=== PATIENT | male | born 1970 | race Caucasian/White ===

== ENCOUNTER 2017-02-17 11:38 | Emergency (ER) | payer MEDICARE ==
[2017-02-17 11:44] VITALS: BP 115/75
--- NOTE | 2017-02-17 12:27 | ER Document Report ---
ED General - General Chief Complaint: Back Pain Stated Complaint: BACK, LEG AND SHOULDER PAIN Time Seen by Provider: 02/17/17 12:21 Mode of Arrival: Ambulatory Information source: Patient Notes: Patient presents stating that he just moved here and he is out of his pain medication and sleep medication. He states he is try to see several doctors but has been unable to get his medications. He states he has chronic MS. He states he is having both leg and head pain. They are constant and moderate to severe. Nothing makes it better or worse. He states it makes it hard for him to sleep. Patient is asking for referral to primary care physician. The pain does radiate up both legs and down the back of her neck. - Related Data Allergies/Adverse Reactions: diphenhydramine [From Benadryl] Allergy (Verified 02/17/17 11:43) escitalopram [From Lexapro] Allergy (Verified 02/17/17 11:43) Sulfa (Sulfonamide Antibiotics) Allergy (Verified 02/17/17 11:43) Home Medications: Current Home Medications Finasteride [Proscar 5 mg Tablet] 5 mg PO DAILY 02/17/17 [History] Nabilone [Cesamet] 1 mg PO BID 02/17/17 [History] Omeprazole Magnesium [Prilosec Otc] 20 mg PO DAILY 02/17/17 [History] Ondansetron HCl [Zofran 4 mg Tablet] 2 tab PO TID 02/17/17 [History] Oxycodone HCl 20 mg PO QID 02/17/17 [History] Pregabalin [Lyrica 100 Mg Capsule] 100 mg PO TID 02/17/17 [History] Quetiapine Fumarate [Seroquel] 100 mg PO QHS 02/17/17 [History] Ranitidine HCl [Zantac 150 mg Tablet] 150 mg PO BID 02/17/17 [History] Tamsulosin HCl [Flomax] 0.4 mg PO DAILY 02/17/17 [History] Past Medical History - Social History Smoking Status: Never Smoker Chew tobacco use (# tins/day): No Frequency of alcohol use: None Drug Abuse: None Family History: Reviewed & Not Pertinent Renal/ Medical History: Denies: Hx Peritoneal Dialysis GI Medical History: Reports: Hx Gastroesophageal Reflux Disease Past Surgical History: Reports: Hx Abdominal Surgery - lap demetria 2004, bilat hernia repair 2009, Hx Orthopedic Surgery - R shoulder Review of Systems - Review of Systems Constitutional: Malaise, Weakness. denies: Chills, Fever Cardiovascular: denies: Chest pain, Palpitations Respiratory: denies: Cough, Short of breath Physical Exam - Vital signs Vitals: Temp Pulse Resp BP Pulse Ox 97.9 F 94 16 115/75 99 02/17/17 11:41 02/17/17 11:41 02/17/17 11:41 02/17/17 11:41 02/17/17 11:41 Interpretation: Normal - General General appearance: Appears well, Alert - HEENT Head: Normocephalic, Atraumatic Eyes: Normal Pupils: PERRL - Respiratory Respiratory status: No respiratory distress Chest status: Nontender Breath sounds: Normal Chest palpation: Normal - Cardiovascular Rhythm: Regular Heart sounds: Normal auscultation Murmur: No - Abdominal Inspection: Normal Distension: No distension Bowel sounds: Normal Tenderness: Nontender Organomegaly: No organomegaly - Back Back: Normal, Nontender - Extremities General upper extremity: Normal inspection, Nontender, Normal color, Normal ROM , Normal temperature General lower extremity: Normal inspection, Nontender, Normal color, Normal ROM , Normal temperature, Normal weight bearing. No: Delmi's sign - Neurological Neuro grossly intact: Yes Cognition: Normal Orientation: AAOx4 [place] Coma Scale Eye Opening: Spontaneous [place] Coma Scale Verbal: Oriented [place] Coma Scale Motor: Obeys Commands Bassam Coma Scale Total: 15 Speech: Normal Sensory: Normal - Psychological Associated symptoms: Normal affect, Normal mood - Skin Skin Temperature: Warm Skin Moisture: Dry Skin Color: Normal Course - Vital Signs Vital signs: Temp Pulse Resp BP Pulse Ox 97.9 F 94 16 115/75 99 02/17/17 11:41 02/17/17 11:41 02/17/17 11:41 02/17/17 11:41 02/17/17 11:41 Discharge - Discharge Clinical Impression: Multiple sclerosis exacerbation Condition: Stable Disposition: HOME, SELF-CARE Additional Instructions: Please follow-up with a walk-in appointment at Dr. Gaspar's office as soon as possible. Prescriptions: Quetiapine Fumarate [Seroquel] 100 mg PO QHS #12 tablet Oxycodone HCl/Acetaminophen [Percocet 5-325 mg Tablet] 1 - 2 tab PO Q6 #15 tablet Referrals: KEVIN GASPAR MD [COMMUNITY BASED STAFF] - Follow up as needed
== END 2017-02-17 12:28 | disposition home or self-care (01) ==
LOC: ER 11:38
DX: G35 Multiple sclerosis (principal); M54.9 Dorsalgia, unspecified; M79.606 Pain in leg, unspecified; M25.519 Pain in unspecified shoulder; Z79.899 Other long term (current) drug therapy
CPT/HCPCS: 99283

== ENCOUNTER 2017-03-26 16:35 | Emergency (ER) | payer MEDICARE, MEDICAID ==
--- NOTE | 2017-03-26 18:56 | ER Document Report ---
HPI - HPI Patient complains to provider of: Right knee, right leg pain Onset: Other - 2 days ago Onset/Duration: Persistent Quality of pain: Achy, Burning Pain Level: 4 Context: Patient states that he was squatting down 2 days ago and as he stood up he felt a sudden sharp pain in his right knee. Patient states that since then he has had anterior right lower leg pain and burning with pins and needles sensation to the plantar surface of his right foot. Patient states that yesterday his leg was swollen although the swelling resolved today. Patient does have a history of MS and is not currently followed by a neurologist as he just recently relocated to this area. Patient denies any recent travel, bedrest remobilization. No history of PE or DVT in the past. Associated Symptoms: Other - Right knee, right lower leg pain Exacerbated by: Movement Relieved by: Denies Similar symptoms previously: No Recently seen / treated by doctor: No - ROS ROS below otherwise negative: Yes Systems Reviewed and Negative: Yes All other systems reviewed and negative - CONSTITUTIONAL Constitutional: DENIES: Fever, Chills - CARDIOVASCULAR Cardiovascular: DENIES: Chest pain - RESPIRATORY Respiratory: DENIES: Trouble Breathing, Coughing - MUSCULOSKELETAL Musculoskeletal: REPORTS: Extremity pain, Swelling - Yesterday, now resolved - DERM Skin Color: Normal Skin Problems: None Past Medical History - General Information source: Patient - Social History Smoking Status: Current Every Day Smoker Chew tobacco use (# tins/day): No Frequency of alcohol use: None Drug Abuse: None Occupation: Construction Lives with: Family Family History: Reviewed & Not Pertinent Patient has suicidal ideation: No Patient has homicidal ideation: No - Medical History Medical History: Other - MS Renal/ Medical History: Denies: Hx Peritoneal Dialysis GI Medical History: Reports: Hx Gastroesophageal Reflux Disease Musculoskeltal Medical History: Reports Hx Arthritis Past Surgical History: Reports: Hx Abdominal Surgery - lap demetria 2004, bilat hernia repair 2008, Hx Orthopedic Surgery - R shoulder Vertical Provider Document - CONSTITUTIONAL Agree With Documented VS: Yes Exam Limitations: No Limitations General Appearance: WD/WN, No Apparent Distress - INFECTION CONTROL TRAVEL OUTSIDE OF THE [place] IN LAST 30 DAYS: No - HEENT HEENT: Atraumatic, Normocephalic - NECK Neck: Normal Inspection, Supple - RESPIRATORY Respiratory: Breath Sounds Normal, No Respiratory Distress O2 Sat by Pulse Oximetry: 99 - CARDIOVASCULAR Cardiovascular: Regular Rate, Regular Rhythm, No Murmur Pulses: Normal: Posterior tibial, Dorsalis pedis - MUSCULOSKELETAL/EXTREMETIES Musculoskeletal/Extremeties: MAEW, Tender - Mild tenderness to lateral aspect of right knee. Patient with tenderness along the middle third of tibia of right leg. No calf tenderness, no edema, normal skin color and temperature to right lower extremity, No Edema. negative: Eccymosis - NEURO Level of Consciousness: Awake, Alert, Appropriate Motor/Sensory: No Motor Deficit, No Sensory Deficit - DERM Integumentary: Warm, Dry, No Rash Course - Re-evaluation Re-evalutation: 03/26/17 18:[address] Horowitz regarding patient presentation and evaluation. Advises immobilizing knee with King wrap and offering crutches. Recommends outpatient follow-up with orthopedic doctor as well as follow-up with the primary doctor for recheck. Discussed plan of care with patient. Patient advised of need for follow-up with primary doctor as well as orthopedic doctor for any continued right knee joint pain. Patient advised that his burning, tingling sensation to his right foot could be signs of potential MS flareup and patient should follow-up with his neurologist for further evaluation and management. - Vital Signs Vital signs: Temp Pulse Resp BP Pulse Ox 98.4 F 85 18 129/85 H 99 03/26/17 16:42 03/26/17 16:42 03/26/17 16:42 03/26/17 16:42 03/26/17 16:42 Procedures - Immobilization Right Knee Pre-Proc Neuro Vasc Exam: Normal Immobilizer type: King wrap Performed by: PCT Post-Proc Neuro Vasc Exam: Normal Alignment checked and good: Yes Discharge - Discharge Clinical Impression: Pain, joint, knee, right, Paresthesia of right foot, Pain of right leg, Hx of multiple sclerosis Condition: Stable Disposition: HOME, SELF-CARE Instructions: King Wrap ([facility]), Use of Crutches ([facility]), Sprained Knee ([facility]) Additional Instructions: Return immediately for any new or worsening symptoms Followup with your primary care provider, call tomorrow to make a followup appointment Prescriptions: Capsaicin 1 applic TP TID PRN #60 cream..g. PRN Reason: Referrals: ZACH BRANDT MD [ACTIVE STAFF] - Follow up as needed BRITTANY GOODEN FNP [NURSE PRACTITIONER] - Follow up as needed
[2017-03-26 19:08] VITALS: BP 117/78
== END 2017-03-26 19:06 | disposition home or self-care (01) ==
LOC: ER 16:35
DX: M25.561 Pain in right knee (principal); M79.604 Pain in right leg; R20.0 Anesthesia of skin; G35 Multiple sclerosis; F17.200 Nicotine dependence, unspecified, uncomplicated
CPT/HCPCS: 99283

== ENCOUNTER 2017-04-18 16:20 | Emergency (ER) | payer MEDICARE, MEDICAID ==
[2017-04-18] MEDS ORDERED: KETOROLAC TROMETHAMINE 60 MG/2 ML SDV IM ONE (16:34)
--- NOTE | 2017-04-18 16:39 | ER Document Report ---
ED General Pain - General Chief Complaint: Pain All Over Stated Complaint: BACK PAIN Time Seen by Provider: 04/18/17 16:34 Mode of Arrival: Ambulatory Information source: Patient TRAVEL OUTSIDE OF THE [place] IN LAST 30 DAYS: No - HPI Patient complains to provider of: MS flare Onset: Other - Pt states he has been told by his pain management doctors that he could come here for a shot of Dilaudid. He states he is having a flare of his MS. - Related Data Allergies/Adverse Reactions: diphenhydramine [From Benadryl] Allergy (Verified 04/18/17 16:20) escitalopram [From Lexapro] Allergy (Verified 04/18/17 16:20) Sulfa (Sulfonamide Antibiotics) Allergy (Verified 04/18/17 16:20) Past Medical History - Social History Smoking Status: Current Every Day Smoker Chew tobacco use (# tins/day): No Frequency of alcohol use: None Drug Abuse: None Family History: Reviewed & Not Pertinent Patient has suicidal ideation: No Patient has homicidal ideation: No Renal/ Medical History: Denies: Hx Peritoneal Dialysis GI Medical History: Reports: Hx Gastroesophageal Reflux Disease Musculoskeltal Medical History: Reports Hx Arthritis Past Surgical History: Reports: Hx Abdominal Surgery - lap demetria 2004, bilat hernia repair 2008, Hx Orthopedic Surgery - R shoulder Review of Systems - Review of Systems Constitutional: No symptoms reported EENT: No symptoms reported Cardiovascular: No symptoms reported Respiratory: No symptoms reported Gastrointestinal: No symptoms reported Musculoskeletal: See HPI, Joint pain -: Yes All other systems reviewed and negative Physical Exam - General General appearance: Appears well In distress: None - HEENT Pharynx: Normal Neck: Normal - Respiratory Respiratory status: No respiratory distress Breath sounds: Normal - Cardiovascular Rhythm: Regular Heart sounds: Normal auscultation - Abdominal Inspection: Normal Tenderness: Nontender - Extremities General upper extremity: Normal inspection General lower extremity: Normal inspection - Neurological Neuro grossly intact: Yes Cognition: Normal Orientation: AAOx4 Course - Re-evaluation Re-evalutation: 04/18/17 16:37 I have explained to him that we don't give narcotic pain medicine for chronic medical conditions, but I will give him a shot of toradol and he can call his pain management doctors in the morning for additional meds
[2017-04-18] MEDS ORDERED: HYDROMORPHONE HCL INJ/PF 2 MG/ML AMPULE IM ONE (18:40)
--- NOTE | 2017-04-18 18:42 | ER Document Report ---
ED General - General Chief Complaint: Pain All Over Stated Complaint: BACK PAIN Time Seen by Provider: 04/18/17 16:34 Mode of Arrival: Ambulatory Notes: Patient is a 46-year-old male with a past medical history of secondary progressive multiple sclerosis who presents with diffuse body pain. Patient states that he has chronic pain and is currently prescribed opiates for control of his chronic daily pain but is having a flare of his pain as related to his multiple sclerosis secondary to a recent long car ride and change in temperatures between the [facility] and here in [place]. He describes it as a diffuse, throbbing, constant aching pain to his low back, ears and wrists bilaterally. He has tried his home medications without relief. Nothing worsens his symptoms. He has had similar flares in the past due to similar causes and states he typically will come to the emergency department receive a single injection of a pain medication for resolution of this pain. He denies any fever or constitutional symptoms. He has not seen his primary doctor regarding today's concerns. TRAVEL OUTSIDE OF THE [place] IN LAST 30 DAYS: No - Related Data Allergies/Adverse Reactions: diphenhydramine [From Benadryl] Allergy (Verified 04/18/17 16:20) escitalopram [From Lexapro] Allergy (Verified 04/18/17 16:20) Sulfa (Sulfonamide Antibiotics) Allergy (Verified 04/18/17 16:20) Past Medical History - General Information source: Patient - Social History Smoking Status: Current Every Day Smoker Chew tobacco use (# tins/day): No Frequency of alcohol use: None Drug Abuse: None Lives with: Spouse/Significant other Family History: Reviewed & Not Pertinent Patient has suicidal ideation: No Patient has homicidal ideation: No Renal/ Medical History: Denies: Hx Peritoneal Dialysis GI Medical History: Reports: Hx Gastroesophageal Reflux Disease Musculoskeltal Medical History: Reports Hx Arthritis Past Surgical History: Reports: Hx Abdominal Surgery - lap demetria 2004, bilat hernia repair 2008, Hx Orthopedic Surgery - R shoulder Review of Systems - Review of Systems Notes: Constitutional: Negative for fever. HENT: Negative for sore throat. Eyes: Negative for visual changes. Cardiovascular: Negative for chest pain. Respiratory: Negative for shortness of breath. Gastrointestinal: Negative for abdominal pain, vomiting or diarrhea. Genitourinary: Negative for dysuria. Musculoskeletal: Positive for diffuse body pain Skin: Negative for rash. Neurological: Negative for headaches, weakness or numbness. 10 point ROS negative except as marked above and in HPI. Physical Exam - Vital signs Interpretation: Normal Notes: PHYSICAL EXAMINATION: GENERAL: Well-appearing, well-nourished and in no acute distress. HEAD: Atraumatic, normocephalic. EYES: Pupils equal round and reactive to light, extraocular movements intact, sclera anicteric, conjunctiva are normal. ENT: nares patent, oropharynx clear without exudates. Moist mucous membranes. NECK: Normal range of motion, supple without lymphadenopathy LUNGS: Breath sounds clear to auscultation bilaterally and equal. No wheezes rales or rhonchi. HEART: Regular rate and rhythm without murmurs ABDOMEN: Soft, nontender, normoactive bowel sounds. No guarding, no rebound. No masses appreciated. EXTREMITIES: Normal range of motion, no pitting or edema. No cyanosis. NEUROLOGICAL: No focal neurological deficits. Moves all extremities spontaneously and on command. PSYCH: Normal mood, normal affect. SKIN: Warm, Dry, normal turgor, no rashes or lesions noted. Course - Re-evaluation Re-evalutation: 04/18/17 18:40 The patient does present today complaining of a flare of his chronic pain secondary to MS. Patient fully discloses all chronic pain prescriptions and states that he is only asking for a single dose of IM hydromorphone or morphine as he often flares and has had approval from his pain clinic physician for this process. Patient does not demonstrate any drug-seeking behaviors. He reports thoroughly and completely all of his prescriptions that he has received within the last 60 days. Will administer a single dose of hydromorphone IM here in the emergency department and no prescriptions for discharge home which patient is completely agreeable to. He denies any additional medical complaints. Medical screening examination is otherwise unremarkable. At this time will discharge with return precautions and follow-up recommendations. Verbal discharge instructions given a the bedside and opportunity for questions given. Medication warnings reviewed. Patient is in agreement with this plan and has verbalized understanding of return precautions and the need for primary care follow-up in the next 24-72 hours. Discharge - Discharge Clinical Impression: Multiple sclerosis Chronic pain Qualifiers: Chronic pain type: other chronic pain Qualified Code(s): G89.29 - Other chronic pain Condition: Good Disposition: HOME, SELF-CARE Additional Instructions: Please return to the emergency room immediately if you experience any concerning symptoms including high fevers, severe headache, chest pain, difficulty breathing, abdominal pain, slurred speech, numbness or weakness in your arms or legs, or any other symptom that concerns you. Referrals: BRITTANY GOODEN FNP [Primary Care Provider] - Follow up as needed
== END 2017-04-18 18:57 | disposition home or self-care (01) ==
LOC: ER 16:20
DX: G89.29 Other chronic pain (principal); M54.5 Low back pain; H92.03 Otalgia, bilateral; M25.531 Pain in right wrist; M25.532 Pain in left wrist; Z79.891 Long term (current) use of opiate analgesic; G35 Multiple sclerosis; F17.200 Nicotine dependence, unspecified, uncomplicated; Z88.8 Allergy status to other drugs, medicaments and biological substances; Z88.2 Allergy status to sulfonamides
CPT/HCPCS: 99283; 96372; J1885; J1170

== ENCOUNTER 2017-05-20 19:54 | Emergency (ER) | payer MEDICARE, MEDICAID ==
[2017-05-20 20:03] VITALS: BP 130/70
== END 2017-05-20 21:53 | disposition left against medical advice (07) ==
LOC: ER 19:54
DX: Z53.21 Procedure and treatment not carried out due to patient leaving prior to being seen by health care provider (principal)

== ENCOUNTER 2017-05-26 20:46 | Emergency (ER) | payer MEDICARE, MEDICAID ==
[2017-05-26 20:57] VITALS: BP 113/77
[2017-05-26] MEDS ORDERED: MORPHINE SULFATE 10 MG/ML INJ IM ONE (23:15)
[2017-05-26] MEDS ORDERED: DEXAMETHASONE SOD PHOS INJ 10 MG/1 ML VIAL IM ONE (23:15)
--- NOTE | 2017-05-26 23:25 | ER Document Report ---
ED General - General Chief Complaint: Tremor Stated Complaint: MUSCLE PAIN Time Seen by Provider: 05/26/17 22:57 Mode of Arrival: Ambulatory Information source: Patient Notes: 46-year-old male presents to ED for complaint of MS flare. He states he has generalized pain. States he came in just to get a pain shot and steroid injection for the MS flare. States he takes oxycodone 15 mg 4 times daily D. States once in a while he does need a pain shot for a flare because he is not on his normal MS medicine that he gets to a neurologist. He states he is trying to set up the neurologist because he is moved to this area and he has an appointment with his doctor tomorrow they have made a referral for the neurologist but he does not have a set appointment yet. TRAVEL OUTSIDE OF THE [place] IN LAST 30 DAYS: No - HPI Onset: This afternoon Onset/Duration: Persistent Quality of pain: Achy, Sharp Severity: Moderate Pain Level: 4 Associated symptoms: Other - General body pain Exacerbated by: Movement, Walking Relieved by: Denies Similar symptoms previously: Yes Recently seen / treated by doctor: Yes - Related Data Allergies/Adverse Reactions: diphenhydramine [From Benadryl] Allergy (Verified 05/20/17 19:56) escitalopram [From Lexapro] Allergy (Verified 05/20/17 19:56) Sulfa (Sulfonamide Antibiotics) Allergy (Verified 05/20/17 19:56) Past Medical History - General Information source: Patient - Social History Smoking Status: Current Every Day Smoker Cigarette use (# per day): Yes - 3 cigarettes a day Chew tobacco use (# tins/day): No Smoking Education Provided: Yes - 4 minutes Frequency of alcohol use: None Drug Abuse: None Lives with: Family Family History: Arthritis, CAD, CVA, Hyperlipidemia, Hypertension, Malignancy, Thyroid Disfunction. denies: COPD, DM Patient has suicidal ideation: No Patient has homicidal ideation: No - Past Medical History Cardiac Medical History: Reports: None Pulmonary Medical History: Reports: None EENT Medical History: Reports: None Neurological Medical History: Reports: Hx Cerebrovascular Accident - TIA Endocrine Medical History: Reports: None Renal/ Medical History: Reports: None Malignancy Medical History: Reports None GI Medical History: Reports: Hx Gastroesophageal Reflux Disease, Hx Hiatal Hernia, Hx Colonoscopy, Hx Endoscopy Musculoskeltal Medical History: Reports Hx Arthritis, Reports Hx Multiple Sclerosis, Reports Hx Musculoskeletal Trauma, Reports Other - skull tumor removed Skin Medical History: Reports None Psychiatric Medical History: Reports: Hx Post Traumatic Stress Disorder Traumatic Medical History: Reports: None Infectious Medical History: Reports: None Past Surgical History: Reports: Hx Abdominal Surgery - lap demetria 2004,, Hx Inguinal Hernia - bilat hernia repair 2008, Hx Orthopedic Surgery - R shoulder rotator cuff, skull tumor removed - Immunizations Immunizations up to date: No Hx Diphtheria, Pertussis, Tetanus Vaccination: No Review of Systems - Review of Systems Constitutional: No symptoms reported EENT: No symptoms reported Cardiovascular: No symptoms reported Respiratory: No symptoms reported Gastrointestinal: No symptoms reported Genitourinary: No symptoms reported Male Genitourinary: No symptoms reported Musculoskeletal: Muscle pain, Muscle stiffness, Other - Pain in arms and legs from multiple sclerosis Skin: No symptoms reported Hematologic/Lymphatic: No symptoms reported Neurological/Psychological: No symptoms reported -: Yes All other systems reviewed and negative Physical Exam - Vital signs Vitals: Temp Pulse Resp BP Pulse Ox 98.0 F 89 20 113/77 95 05/26/17 20:56 05/26/17 20:56 05/26/17 20:56 05/26/17 20:56 05/26/17 20:56 Interpretation: Normal - General General appearance: Appears well, Alert - HEENT Head: Normocephalic, Atraumatic Eyes: Normal Pupils: PERRL - Respiratory Respiratory status: No respiratory distress Chest status: Nontender Breath sounds: Normal Chest palpation: Normal - Cardiovascular Rhythm: Regular Heart sounds: Normal auscultation Murmur: No - Abdominal Inspection: Normal Distension: No distension Bowel sounds: Normal Tenderness: Nontender Organomegaly: No organomegaly - Back Back: Normal, Nontender - Extremities General upper extremity: Normal inspection, Normal color, Normal ROM, Normal temperature General lower extremity: Normal inspection, Normal color, Normal ROM, Normal temperature, Normal weight bearing. No: Delmi's sign Hand: Other - Tenderness to upper and lower extremities Notes: Tenderness to upper and lower extremities - Neurological Neuro grossly intact: Yes Cognition: Normal Orientation: AAOx4 [place] Coma Scale Eye Opening: Spontaneous [place] Coma Scale Verbal: Oriented [place] Coma Scale Motor: Obeys Commands [place] Coma Scale Total: 15 Speech: Normal Motor strength normal: LUE, RUE, LLE, RLE Sensory: Normal - Psychological Associated symptoms: Normal affect, Normal mood - Skin Skin Temperature: Warm Skin Moisture: Dry Skin Color: Normal Course - Re-evaluation Re-evalutation: 05/26/17 23:32 Patient treated with morphine and Decadron IM and instructed to follow up with primary md in am and instructed to follow up with primary and neurologist. - Vital Signs Vital signs: Temp Pulse Resp BP Pulse Ox 98.0 F 89 20 113/77 95 05/26/17 20:56 05/26/17 20:56 05/26/17 20:56 05/26/17 20:56 05/26/17 20:56 Discharge - Discharge Clinical Impression: Chronic pain from multiple sclerosis Condition: Stable Disposition: HOME, SELF-CARE Additional Instructions: Chronic Pain Control Stress, inactivity, and depression make pain more severe regardless of the cause of the pain. Stress and poor physical condition can cause pain such as headaches and backache. Relaxation: Rest in a quiet place with your eyes closed for 20 minutes twice daily. Concentrate on a pleasant image, or simply "feel" your breathing. Clear your mind. Stress management: Deal with your "stressors." Either take action, or eliminate the stressor from your life. Don't let things hang over you. Accept those things you can't change. Nutrition: Eat small, balanced meals -- don't skip, don't overeat. Meals should be high-carbohydrate, low-sugar, low-fat. Exercise: Exercise helps painful conditions and eases stress. Get 30 minutes of moderate exercise, five days a week. Do an activity that does not flare your pain. Precautions: Pain which continues to disrupt daily activities, or which changes in nature, requires a medical evaluation. Pain Clinic referral is available. We do not manage chronic pain in the Emergency Department. We will try to appropriately help you through an acute flare of your chronic painful condition , but for on-going chronic pain that does not improve, you will need to see your private doctor or supervisor painting. We do not provide repeated medication management of chronic painful conditions. If you wish, we can provide the name of local pain management physicians. STEROID MEDICATION: You have been given an injection of medicine of the cortisone/steroid class. This medication is used to control inflammation or allergy. It is often continued as a pill for a short period of time, until the acute process subsides. There are usually no side effects from short-term use of cortisone-like medications. Some persons feel an increased sense of well-being and are not sleepy at bedtime. Long-term use of cortisone medications is best avoided, unless required for a severe condition. If your condition does not remit, or relapses after the course of corticosteroid medication, you should consult your physician. You were given a pain injection today for your multiple sclerosis pain. As the above explains we do not normally give narcotics for chronic pain. FOLLOW-UP CARE: If you have been referred to a physician for follow-up care, call the physician s office for an appointment as you were instructed or within the next two days. If you experience worsening or a significant change in your symptoms, notify the physician immediately or return to the Emergency Department at any time for re-evaluation. Forms: Smoking Cessation Education, Return to Work Referrals: BRITTANY GOODEN FNP [Primary Care Provider] - Follow up as needed
== END 2017-05-26 23:44 | disposition home or self-care (01) ==
LOC: ER 20:46
DX: G35 Multiple sclerosis (principal); G89.29 Other chronic pain; M79.1 Myalgia; Z79.899 Other long term (current) drug therapy; R25.1 Tremor, unspecified; F17.210 Nicotine dependence, cigarettes, uncomplicated
CPT/HCPCS: 99406; 99283; 96372; J1100

== ENCOUNTER 2017-09-05 17:12 | Emergency (ER) | payer MEDICARE, MEDICAID ==
[2017-09-05] MEDS ORDERED: LIDOCAINE 1% INJ-PF (10 MG/ML) 30 ML SDV INJ ONE (17:50)
--- NOTE | 2017-09-05 17:53 | ER Document Report ---
HPI - HPI Pain Level: 2 Notes: Patient is a 46-year-old male with no significant past medical history who presents to the ED complaining of a laceration to his left distal thumb around 430 this afternoon. Patient states that he was using a brand-new knife and trying to make dinner when he accidentally cut his thumb. Patient states that he was able to finally get the bleeding under control. He is still able to move his thumb without any difficulties. Patient believes that he missed his fingernail. No other concerns or complaints at this time. Denies any smoking or IV drug use. Denies any headache, fever, URI, sore throat, chest pain, palpitations, syncope, cough, shortness of breath, wheeze, dyspnea, abdominal pain, nausea/vomiting/diarrhea, urinary retention, dysuria, hematuria, numbness/ tingling, muscle paralysis/weakness, or rash. - ROS Systems Reviewed and Negative: Yes All other systems reviewed and negative - CONSTITUTIONAL Constitutional: DENIES: Fever, Chills - EENT EENT: DENIES: Sore Throat, Ear Pain, Eye problems - NEURO Neurology: DENIES: Headache, Weakness, Vision blurred, Dizzinesss / Vertigo - CARDIOVASCULAR Cardiovascular: DENIES: Chest pain - RESPIRATORY Respiratory: DENIES: Trouble Breathing, Coughing - GASTROINTESTINAL Gastrointestinal: DENIES: Abdominal Pain, Black / Bloody Stools - URINARY Urinary: DENIES: Dysuria, Urgency, Frequency - MUSCULOSKELETAL Musculoskeletal: REPORTS: Extremity pain - L thumb/ laceration Past Medical History - Social History Smoking Status: Never Smoker Family History: Arthritis, CAD, CVA, Hyperlipidemia, Hypertension, Malignancy, Thyroid Disfunction. denies: COPD, DM Patient has suicidal ideation: No Patient has homicidal ideation: No Neurological Medical History: Reports: Hx Cerebrovascular Accident - TIA Renal/ Medical History: Denies: Hx Peritoneal Dialysis GI Medical History: Reports: Hx Gastroesophageal Reflux Disease, Hx Hiatal Hernia, Hx Colonoscopy, Hx Endoscopy Musculoskeltal Medical History: Reports Hx Arthritis, Reports Hx Multiple Sclerosis, Reports Hx Musculoskeletal Trauma Psychiatric Medical History: Reports: Hx Post Traumatic Stress Disorder Past Surgical History: Reports: Hx Abdominal Surgery - lap demetria 2004,, Hx Inguinal Hernia - bilat hernia repair 2008, Hx Orthopedic Surgery - R shoulder rotator cuff, skull tumor removed - Immunizations Immunizations up to date: No Hx Diphtheria, Pertussis, Tetanus Vaccination: No Vertical Provider Document - CONSTITUTIONAL Agree With Documented VS: Yes Notes: PHYSICAL EXAMINATION: GENERAL: Well-appearing, well-nourished and in no acute distress. LUNGS: Breath sounds clear to auscultation bilaterally and equal. No wheezes rales or rhonchi. HEART: Regular rate and rhythm without murmurs, rubs, gallops. Musculoskeletal: Left thumb: FROM to passive/active. Strength 5+/5. N/V intact distal. No bony tenderness. Extremities: No cyanosis, clubbing, or edema b/l. Peripheral pulses 2+. Capillary refill less than 3 seconds. NEUROLOGICAL: Cranial nerves grossly intact. Normal speech, normal gait. Normal sensory, motor exams PSYCH: Normal mood, normal affect. SKIN: Left distal thumb: There is a 2cm flap-like laceration to the distal thumb. It does not appear to incorporate the nail. - INFECTION CONTROL TRAVEL OUTSIDE OF THE [place] IN LAST 30 DAYS: No Course - Re-evaluation Re-evalutation: 09/05/17 18:55 Patient is an afebrile, well-hydrated, 46-year-old male who presents to the ED with a left thumb laceration. Vitals are acceptable. PE is otherwise unremarkable for any neurovascular compromise, obvious tendon/ligament rupture, obvious fracture/dislocation, retained foreign body. X-ray was unremarkable for any acute pathology. Wound was thoroughly irrigated and cleansed. Wound edges were approximated appropriately utilizing 4 simple interrupted sutures. Wound dressing was placed and wound instructions reviewed. Splint placed. Tdap was updated today. I will send him home with a prescription for Keflex as prophylaxis. Recheck with your PCM in 2-3 days. Consider consult with orthopedics. Return to the ED with any worsening/concerning symptoms otherwise as reviewed discharge. Sutures will need removed in 10 days. Patient is in agreement. - Vital Signs Vital signs: Temp Pulse Resp BP Pulse Ox 97.6 F 71 14 125/87 H 97 09/05/17 17:17 09/05/17 17:17 09/05/17 17:17 09/05/17 17:17 09/05/17 17:17 Procedures - Laceration/Wound Repair Left Thumb Time completed: 18:50 Wound length (cm): 2 Wound's Depth, Shape: Superficial, Flap. No: Nail-avulsed Laceration pre-procedure: Sterile PPE donned, Sterile drapes applied, Other - chlorhexadine, saline Volume Anesthetic (mLs): 8 Wound explored: Clean, No foreign body removed Irrigated w/ Saline (mLs): 60 Wound Debrided: Minimal Wound Repaired With: Sutures Suture Size/Type: 5:0, Nylon Number of Sutures: 4 Layer Closure?: No Post-procedure wound care: Sterile dressing applied, Splint applied - finger Post-procedure NV exam normal: Yes Complications: No Discharge - Discharge Clinical Impression: Laceration of left thumb Qualifiers: Encounter type: initial encounter Damage to nail status: without damage Foreign body presence: without foreign body Qualified Code(s): S61.012A - Laceration without foreign body of left thumb without damage to nail, initial encounter Condition: Stable Disposition: HOME, SELF-CARE Instructions: Antibiotic Ointment Protection ([facility]), Laceration Care ([facility]), Prophylactic Antibiotic ([facility]), Soap Cleansing ([facility]), Tetanus Immunization Given ([facility]) Additional Instructions: Do not shower or bathe for 24 hours. After 24 hours you may shower but no submersion of the wound under water. Keep the original dressing on the wound for 24 hours unless the drainage soaks through. Change the dressing daily thereafter and keep the knots of the suture material clean from any dried discharge. You may leave the wound open to the air once there is no more discharge. Return to the ED and/or your PCM in 2-3 days for a recheck. Monitor for any signs of worsening pain or redness, purulent drainage, streaks, and/or fever. Return to the ED if noticing any of the above symptoms or as needed. Take medications as directed. Your sutures will need to be removed in 10 days. Prescriptions: Cephalexin Monohydrate [Keflex 500 mg Capsule] 500 mg PO BID #20 capsule Forms: Elevated Blood Pressure Referrals: [facility] [Provider Group] - Follow up as needed
[2017-09-05] MEDS ORDERED: DIPH/PERTUSS(ACELL)/TETANUS VAC/PF 0.5 ML SYR (>=10YO) IM ONE (18:00)
--- NOTE | 2017-09-05 18:38 | RADIOLOGY REPORT (SQ) ---
EXAM DESCRIPTION: HAND LEFT 3 VIEWS COMPLETED DATE/TIME: 09/05/2017 6:16 pm REASON FOR STUDY: left thumb injury/laceration COMPARISON: None. EXAM PARAMETERS: NUMBER OF VIEWS: Three views. TECHNIQUE: AP, lateral and oblique radiographic images acquired of the left hand. LIMITATIONS: None. FINDINGS: MINERALIZATION: Normal. BONES: No acute fracture or dislocation. No worrisome bone lesions. JOINTS: No effusions. SOFT TISSUES: Distal 1st digit laceration- soft tissue swelling. No radiopaque foreign body. OTHER: No other significant finding. IMPRESSION: No fracture or radiopaque foreign body. TECHNICAL DOCUMENTATION: JOB ID: [id number] [place]-72 2010 [employer]- All Rights Reserved Reading location - IP/workstation name: [email or web address]
[2017-09-05 19:10] VITALS: BP 132/82
== END 2017-09-05 19:08 | disposition home or self-care (01) ==
LOC: ER 17:12
PROC: 0HQGXZZ Repair Left Hand Skin, External Approach (ICD-10-PCS; principal; 2017-09-05)
DX: S61.012A Laceration without foreign body of left thumb without damage to nail, initial encounter (principal); W26.0XXA Contact with knife, initial encounter
CPT/HCPCS: 90471; 90715; 99283

== ENCOUNTER 2018-02-03 16:33 | Emergency (ER) | payer MEDICARE, MEDICAID ==
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
--- NOTE | 2018-02-03 18:22 | RADIOLOGY REPORT (SQ) ---
EXAM DESCRIPTION: FOOT LEFT COMPLETE COMPLETED DATE/TIME: 02/03/2018 5:57 pm REASON FOR STUDY: fall 1 week ago, pain lateral 5th distal MT COMPARISON: None. EXAM PARAMETERS: NUMBER OF VIEWS: Three views. TECHNIQUE: AP, lateral and oblique radiographic images acquired of the left foot. LIMITATIONS: None. FINDINGS: MINERALIZATION: Normal. BONES: No acute fracture or dislocation. No worrisome bone lesions. JOINTS: No effusion. SOFT TISSUES: Moderate soft tissue swelling on the lateral aspect of the 5th MTP joint. No radiopaqu e foreign body. OTHER: No other significant finding. IMPRESSION: NO FRACTURE. Moderate soft tissue swelling on the lateral aspect of the 5th MTP joint. No radiopaque foreign body . TECHNICAL DOCUMENTATION: JOB ID: [id number] [place]-72 2010 [employer]- All Rights Reserved Reading location - IP/workstation name: [email or web address]
[2018-02-03 18:54] VITALS: BP 111/80
== END 2018-02-03 18:54 | disposition home or self-care (01) ==
LOC: ER 16:33
DX: S90.32XA Contusion of left foot, initial encounter (principal); M79.672 Pain in left foot; W22.09XA Striking against other stationary object, initial encounter; Y93.89 Activity, other specified; F17.210 Nicotine dependence, cigarettes, uncomplicated; Z88.8 Allergy status to other drugs, medicaments and biological substances; Z88.2 Allergy status to sulfonamides
CPT/HCPCS: 99283